=== PATIENT | male | born 1950 | race Caucasian/White ===

== ENCOUNTER 2016-06-28 09:52 | Emergency (ER) | payer OTHER ==
[2016-06-28 10:00] VITALS: BP 170/88; PULSE 82; RESP 18; TEMP 98.6; O2SAT 96
--- NOTE | 2016-06-28 10:13 | UCPHY ---
H & P Patient Type: New HPI/ROS: Chief complaint-sore throat, pain with swelling. 66-year-old male in good health with baseline mild high blood pressure currently on treatment. He started developing a mild upper respiratory tract infection with scant cough and predominant nasal plugging about 5 days ago. As of 2 days ago he started developing quite a sore throat with painful swallowing. He has looked in his throat and noted to be swollen red with a scab like coating to the posterior pharynx although no change in voice. Has had no fevers or adenopathy. No known specific exposure to influenza or strep. He continues to work. He has been able to sleep but he notes that when he attempts to swallow gets quite worse. He has no risk factors for narcotic addiction. He has never had a problem with same. He is not getting relief with [id number] medicines for his pain. Constitutional - no fevers or chills. Eyes - no discharge, or injection ENT - no earache, change in hearing. Respiratory - No Shortness of breath, phlegm, wheezing or pleuritic chest pain. Musculoskeletal - no joint or muscle pain. Integument - no rashes. Neurological - no headache, numbness, tingling, or paresthesias. No focal motor weakness. Immunological - no swelling or lymphadenopathy Smoking Status: Never smoked Physical Exam: Gen: Well developed, well nourished. Nontoxic. Normal phonation HEENT: Normocephalic. Sinuses are nontender Ears: TMs are clear. Hearing normal. Eyes: PERRL. No conjunctival injection or pallor. no jaundice. Nose: No nasal discharge. Sinuses are nontender. Throat: Membranes are moist. There is a moderate amount of erythema to the uvula and some effacement with edema particularly to the right side of the uvula. This is a scant bluish tint to a redness. There is also a scab like formation to posterior pharynx but he has actually been not able to been coughing that out as he has no productive cough. Lungs: Good air entry into both lungs. No rales rhonchi or wheezes. No air hunger. No respiratory distress. Skin: Good color, without pallor. There is no diaphoresis. Skin is warm and dry , without diaphoresis. Intact without rashes Constitutional: Initial Vital Signs Temperature (C) 37 C 06/28/16 09:58 Heart Rate 82 06/28/16 09:58 Respiratory Rate 18 06/28/16 09:58 Blood Pressure 170/88 H 06/28/16 09:58 O2 Sat (%) 96 06/28/16 09:58 O2 Delivery Mode Room Air Allergies/Adverse Reactions: Sulfa (Sulfonamide Antibiotics) Allergy (Intermediate, Verified 06/28/16 09:57) Unknown Home Medications: Medication Instructions Recorded SAW TORIE 07/14/09 Atorvastatin Calcium 06/28/16 Cefpodoxime Proxetil [Vantin] 200 mg PO BID #20 tab 06/28/16 Hydrocodone/APAP 5/325 [Jenners 1 - 2 tab PO Q6H PRN #16 tab 06/28/16 5/325 (*)] Lisinopril 06/28/16 predniSONE [Prednisone] 30 mg PO BID #30 tablet 06/28/16 Medical Decision Making ED Course/Re-evaluation: [place] Prescription Drug Monitoring Program checked: no activity in last year ED narcotic warning given Differential Diagnosis: Diagnostic considerations include, but are not limited to, the following: Sinusitis, bronchitis, pharyngitis, retropharyngeal abscess, epiglottitis, uvulitis. Departure - Departure Disposition: Home, Routine, Self-Care Clinical Impression: Uvulitis Condition: Good Instructions: Uvulitis (ED) Additional Instructions: You may take pain medicines, so I will not be necessary to get through this. Typically combination of the steroid and antibiotic or work in about 2-3 days. In the interim with lay low, stay home as your contagious Referrals: Dave Farr DO [Primary Care Provider] - As per Instructions Stand Alone Forms: Work Excuse Prescriptions: Hydrocodone/APAP 5/325 [Jenners 5/325 (*)] 1 - 2 tab PO Q6H PRN #16 tab PRN Reason: Pain, Moderate predniSONE [Prednisone] 30 mg PO BID #30 tablet Cefpodoxime Proxetil [Vantin] 200 mg PO BID #20 tab - PQRS PQRS Measurement: Not applicable
== END 2016-06-28 10:43 | disposition home or self-care (01) ==
LOC: CED 09:52
DX: K12.2 Cellulitis and abscess of mouth (principal)
CPT/HCPCS: 99203-PO; G0463-PO